=== PATIENT | male | born 1955 | race Caucasian/White ===

== ENCOUNTER 2020-10-27 14:11 | Emergency (ER) | payer BC ==
[2020-10-27] MEDS ORDERED: Sodium Chloride 0.9% 1,000 ML IV STA (14:30)
[2020-10-27] MEDS ORDERED: Sodium Chloride 0.9% 10 ML Syringe FLUSH PRN (14:30)
[2020-10-27] MEDS ORDERED: Ondansetron 4 MG/2 ML SDV IVPUSH ONE (14:30)
--- NOTE | 2020-10-27 14:44 | EDM.PDOC ---
ED HPI GENERAL MEDICAL PROBLEM - General Chief Complaint: Gastrointestinal Problem Stated Complaint: NAUSEA Time Seen by Provider: 10/27/20 14:21 Source of Information: Reports: Patient History Limitations: Reports: No Limitations - History of Present Illness INITIAL COMMENTS - FREE TEXT/NARRATIVE: The patient presents with nausea, vomiting and cough. This has been going on fo r about 4 days. He says everything he has tried to drink comes back up. He had some diarrhea today. He denies fever or chills. He has no chest pain or shortness of breath. He still has his sense of taste and smell. He does not think he has been around anyone with COVID. He does not smoke. He has no history of lung issues like asthma or COPD. He had his appendix out when he was 14. He has no other health problems. He has some mild abdominal pain. Onset: Gradual Duration: Day(s): (4) Location: Reports: Abdomen Quality: Reports: Ache Severity: Mild Improves with: Reports: None Worsens with: Reports: None Associated Symptoms: Reports: Cough, Nausea/Vomiting. Denies: Chest Pain, Fever/Chills, Headaches, Shortness of Breath Treatments KILN PUSHER: Reports: Other Medication(s) Other Treatments KILN PUSHER: emetrol for nausea - Related Data Allergies Allergy/AdvReac Type Severity Reaction Status Date / Time No Known Allergies Allergy Verified 10/27/20 14:18 Home Meds: Home Meds Ondansetron [Zofran ODT] 4 mg PO Q6H PRN #20 tab.dis 10/27/20 [Rx] dexAMETHasone [Dexamethasone] 6 mg PO DAILY #9 tab 10/27/20 [Rx] Past Medical History Cardiovascular History: Reports: High Cholesterol Endocrine/Metabolic History: Reports: Obesity/BMI 30+ - Past Surgical History GI Surgical History: Reports: Appendectomy Social & Family History - Tobacco Use Tobacco Use Status *Q: Never Tobacco User Second Hand Smoke Exposure: No - Caffeine Use Caffeine Use: Reports: Soda, Tea - Recreational Drug Use Recreational Drug Use: No ED ROS GENERAL - Review of Systems Review Of Systems: See Below Constitutional: Reports: No Symptoms HEENT: Reports: No Symptoms Respiratory: Reports: Cough. Denies: Shortness of Breath Cardiovascular: Reports: No Symptoms Endocrine: Reports: No Symptoms GI/Abdominal: Reports: Abdominal Pain, Nausea, Vomiting. Denies: Diarrhea : Reports: No Symptoms Musculoskeletal: Reports: No Symptoms ED EXAM, GI/ABD - Physical Exam Exam: See Below Exam Limited By: No Limitations General Appearance: Alert, No Apparent Distress Ears: Normal External Exam Nose: Normal Inspection Head: Atraumatic, Normocephalic Neck: Normal Inspection Respiratory/Chest: No Respiratory Distress, Lungs Clear, Normal Breath Sounds Cardiovascular: Regular Rate, Rhythm, No Edema, No Murmur GI/Abdominal Exam: Soft, Non-Tender, No Organomegaly, No Mass Back Exam: Normal Inspection Extremities: Normal Inspection Course - Vital Signs Last Recorded V/S: Last Vital Signs Temp 98.9 F 10/27/20 14:19 Pulse 96 10/27/20 14:19 Resp 16 10/27/20 14:19 BP 128/75 10/27/20 14:19 Pulse Ox 95 10/27/20 14:19 - Orders/Labs/Meds Orders: Active Orders 24 hr Category Date Time Status Peripheral IV Care [RC] . DIRECTED Care 10/27/20 14:30 Active Chest 1V Frontal [CR] Stat Exams 10/27/20 14:30 Taken Sodium Chloride 0.9% [Saline Flush] Med 10/27/20 14:30 Active 10 ml FLUSH ASDIRECTED PRN ED Antiemetic Medication Reflex [OM.PC] Stat Oth 10/27/20 14:31 Ordered Peripheral IV Insertion Adult [OM.PC] Stat Oth 10/27/20 14:30 Ordered Medication Orders Sodium Chloride (Sodium Chloride 0.9% 10 Ml Syringe) 10 ml FLUSH ASDIRECTED PRN PRN Reason: Keep Vein Open Last Admin: 10/27/20 14:59 Dose: 10 ml Documented by: NICHOLAS Labs: Laboratory Tests 10/27/20 10/27/20 10/27/20 Range/Units 14:55 14:55 14:55 WBC 5.53 (4.23-9.07) K/mm3 RBC 5.31 (4.63-6.08) M/mm3 Hgb 16.6 (13.7-17.5) gm/dl Hct 47.3 (40.1-51.0) % MCV 89.1 (79.0-92.2) fl MCH 31.3 (25.7-32.2) pg MCHC 35.1 (32.2-35.5) g/dl RDW Std Deviation 41.2 (35.1-43.9) fL Plt Count 140 L (163-337) K/mm3 MPV 10.7 (9.4-12.3) fl Neut % (Auto) 74.6 H (34.0-67.9) % Lymph % (Auto) 15.0 L (21.8-53.1) % [place] % (Auto) 9.8 (5.3-12.2) % Eos % (Auto) 0 L (0.8-7.0) Baso % (Auto) 0.4 (0.1-1.2) % Neut # (Auto) 4.13 (1.78-5.38) K/mm3 Lymph # (Auto) 0.83 L (1.32-3.57) K/mm3 [place] # (Auto) 0.54 (0.30-0.82) K/mm3 Eos # (Auto) 0.00 L (0.04-0.54) K/mm3 Baso # (Auto) 0.02 (0.01-0.08) K/mm3 Sodium 138 (136-145) mEq/L Potassium 3.8 (3.5-5.1) mEq/L Chloride 100 (98-107) mEq/L Carbon Dioxide 26 (21-32) mEq/L Anion Gap 15.8 H (5-15) BUN 17 (7-18) mg/dL Creatinine 1.5 H (0.7-1.3) mg/dL Est Cr Clr Drug Dosing 50.13 mL/min Estimated GFR (MDRD) 47 (>60) mL/min BUN/Creatinine Ratio 11.3 L (14-18) Glucose 126 H (70-99) mg/dL Calcium 8.3 L (8.5-10.1) mg/dL Total Bilirubin 1.4 H (0.2-1.0) mg/dL AST 27 (15-37) U/L ALT 29 (16-63) U/L Alkaline Phosphatase 68 (46-116) U/L Total Protein 7.5 (6.4-8.2) g/dl Albumin 3.3 L (3.4-5.0) g/dl Globulin 4.2 gm/dL Albumin/Globulin Ratio 0.8 L (1-2) Lipase 110 (73-393) U/L SARS-CoV-2 RNA (RAY) Positive H (NEGATIVE) Meds: Medications Generic Name Dose Route Start Last Admin Trade Name Freq PRN Reason Stop Dose Admin Sodium Chloride 10 ml 10/27/20 14:30 10/27/20 14:59 Sodium Chloride 0.9% 10 Ml Syringe FLUSH 10 ml ASDIRECTED PRN Administration Keep Vein Open Discontinued Medications Generic Name Dose Route Start Last Admin Trade Name Freq PRN Reason Stop Dose Admin Dexamethasone 6 mg 10/27/20 16:35 Dexamethasone 4 Mg/Ml 5 Ml Mdv IV 10/27/20 16:36 ONETIME ONE Sodium Chloride 1,000 mls @ 1,000 mls/hr 10/27/20 14:30 10/27/20 14:58 Normal Saline IV 10/27/20 15:29 1,000 mls/hr .BOLUS STA Administration Ondansetron HCl 4 mg 10/27/20 14:30 10/27/20 14:58 Ondansetron 4 Mg/2 Ml Sdv IVPUSH 10/27/20 14:31 4 mg ONETIME ONE Administration Ondansetron HCl 4 mg 10/27/20 16:35 Ondansetron 4 Mg Tab.Dis PO 10/27/20 16:36 ONETIME ONE - Re-Assessments/Exams Free Text/Narrative Re-Assessment/Exam: 10/27/20 14:45 I ordered an IV NS 1L bolus, zofran 4mg IV, labs, UA, CXR and COVID 19. 10/27/20 16:37 His CXR shows mild patchy bilateral airspace opacities compatible with infection. There is somewhat nodular one in the right upper lung zone. Follow- up to resolution with PA and lateral recommended. His WBC is normal. His platelets are low at 140. His anion gap is elevated at 15.8. His creatinine is elevated at 1.5. His glucose is elevated at 1.5. He is COVID positive. His oxygen saturations are good. He does not need to be admitted. He does not meet the criteria for the REGEN-COV. I will give him a dose of dex here and a prescription for more and some zofran. Departure - Departure Time of Disposition: 16:45 Disposition: Home, Self-Care 01 Condition: Good Clinical Impression: COVID-19, Pneumonia due to COVID-19 virus Nausea and vomiting Qualifiers: Vomiting type: unspecified Vomiting Intractability: non-intractable Qualified Code(s): R11.2 - Nausea with vomiting, unspecified - Discharge Information *PRESCRIPTION DRUG MONITORING PROGRAM REVIEWED*: Not Applicable *COPY OF PRESCRIPTION DRUG MONITORING REPORT IN PATIENT DONTA: Not Applicable Prescriptions: dexAMETHasone [Dexamethasone] 6 mg PO DAILY #9 tab Referrals: PCP,Not In Area [Primary Care Provider] - Rebecca Mendieta, DESKTOP ANALYST [Nurse Practitioner] - 1 Week Forms: ED Department Discharge Additional Instructions: Drink plenty of fluids. Take the dexamethasone 6mg or 1 1/2 tablet by mouth daily until gone. Take the zofran every 6 hours as needed for nausea and vomiting. Take tylenol or motrin for any fever or pain. Quarantine until you get notified by the state that you are clear. Please return if you are worse. Sepsis Event Note (ED) - Focused Exam Vital Signs: Vital Signs Temp Pulse Resp BP Pulse Ox 10/27/20 14:19 98.9 F 96 16 128/75 95 - My Orders Last 24 Hours: My Active Orders 10/27/20 14:30 Peripheral IV Care [RC] . DIRECTED Chest 1V Frontal [CR] Stat Sodium Chloride 0.9% [Saline Flush] 10 ml FLUSH ASDIRECTED PRN Peripheral IV Insertion Adult [OM.PC] Stat 10/27/20 14:31 ED Antiemetic Medication Reflex [OM.PC] Stat - Assessment/Plan Last 24 Hours: My Active Orders 10/27/20 14:30 Peripheral IV Care [RC] . DIRECTED Chest 1V Frontal [CR] Stat Sodium Chloride 0.9% [Saline Flush] 10 ml FLUSH ASDIRECTED PRN Peripheral IV Insertion Adult [OM.PC] Stat 10/27/20 14:31 ED Antiemetic Medication Reflex [OM.PC] Stat
[2020-10-27] MEDS ORDERED: Dexamethasone 4 MG/ML 5 ML MDV IV ONE (16:35)
[2020-10-27] MEDS ORDERED: Ondansetron 4 MG Tab.DIS PO ONE (16:35)
--- NOTE | 2020-10-27 19:04 | CR ---
Chest: Portable view of the chest was obtained. Comparison: No prior chest imaging is available. Patchy areas of increased density within the right upper and right lower lung. Left lung is clear. Heart size and mediastinum are normal. Prior surgery is noted within the proximal left humerus. Bony structures show nothing acute. Impression: 1. Patchy areas of increased density within the right upper and right lower chest. Findings most likely represent pneumonia. Please rule out COVID etiology for pneumonia. Diagnostic code #3
== END 2020-10-27 16:55 | disposition home or self-care (01) ==
LOC: JD.ED 14:11
DX: U07.1 COVID-19 (principal); J12.82 Pneumonia due to coronavirus disease 2019; R11.2 Nausea with vomiting, unspecified; E66.9 Obesity, unspecified; Z68.21 Body mass index [BMI] 21.0-21.9, adult
CPT/HCPCS: 36415; 71045; 80053; 83690; 85025; 87635; 96374; 96375; 99284; A9270; J1100; J2405; J7030; U0002